=== PATIENT | male | born 1975 | race Caucasian/White ===

== ENCOUNTER 2019-01-04 01:23 | Inpatient (IN) | payer SELFPAY ==
[2019-01-04 02:40] LABS: #Eosinphils 0.1 thou/uL (0.0-0.7); #Lymphocytes 1.5 thou/uL (1.20-3.40); #Monocytes 0.9 thou/uL (0.11-0.59); %Basophils 0.2 % (0.0-1.0); %Eosinophils 0.7 % (0.0-10.0); %Lymphocytes 8.8 % (21.0-51.0); %Monocytes 5.3 % (0.0-10.0); Hemoglobin 15.4 g/dL (14.0-18.0); Mean Corpuscular HGB CONC 33.4 g/dL (32.0-36.0); Mean Corpuscular Hemoglobin 30.3 pg (27.0-31.0); Mean Corpuscular Volume 90.5 fL (78.0-98.0); Mean Platelet Volume 7.2 fL (7.4-10.4); Platelet Count 299 thou/uL (130-400); RBC Distribution Width 12.2 % (11.5-14.5); Red Blood Cell (RBC) Count 5.09 mill/uL (4.70-6.10); White Blood Cell (WBC) Count 16.5 thou/uL (4.8-10.8)
[2019-01-04] MEDS ORDERED: Mag-Al 1200 mg/1200 mg/30 ML UDCUP ONE (02:40)
[2019-01-04] MEDS ORDERED: Lidocaine Viscous Sol 2% 15 ml UD Cup ONE (02:40)
[2019-01-04 02:57] LABS: ALT (SGPT) 19 U/L (8-55); AST (SGOT) 19 U/L (5-34); Albumin 4.5 g/dL (3.5-5.0); Alkaline Phosphatase 75 U/L (40-150); Anion Gap 12 mmol/L (10-20); BUN (Urea Nitrogen) 9 mg/dL (8.9-20.6); Bilirubin, Total 0.6 mg/dL (0.2-1.2); Calc. Creatinine Clearance 0 mL/min (70-130); Calcium 9.6 mg/dL (7.8-10.44); Carbon Dioxide 27 mmol/L (22-29); Chloride 105 mmol/L (98-107); Estimated GFR-MDRD 61; Globulin 2.4 g/dL (2.4-3.5); Glucose 119 mg/dL (70-105); Lipase 18 U/L (8-78); Potassium 3.5 mmol/L (3.5-5.1); Protein, Total 6.9 g/dL (6.0-8.3); Sodium 140 mmol/L (136-145)
[2019-01-04 03:11] LABS: Bilirubin Negative (Negative); Blood, Urine Negative (Negative); Clarity CLEAR (Clear); Glucose, Urine (Dipstick) Negative (Negative); Leukocyte Negative (Negative); Nitrite Negative (Negative); Protein, Urine (Dipstick) Negative (Neg-Trace); Specific Gravity, Urine 1.022 (1.002-1.036); Urobilinogen 0.2 mg/dL (0.2-1.0); pH, Urine 5.5 (5.0-9.0)
[2019-01-04] MEDS ORDERED: cefOXitin 2 GM VIAL ONE (04:15)
[2019-01-04] MEDS ORDERED: Morphine 4 MG/ML VIAL ONE (04:15)
[2019-01-04] MEDS ORDERED: Ondansetron PF 4 MG/2 ML Vial ONE (04:15)
[2019-01-04 06:25] VITALS: TEMP 98.1; BMI 25.2
[2019-01-04 07:55] VITALS: BP 137/94
[2019-01-04] MEDS ORDERED: ISOVUE-370 76%-LOCM 1 ML ONE (08:00)
--- NOTE | 2019-01-04 08:46 | CT ---
PRELIMINARY REPORT/[facility]/EMERGENTY AFTER-HOURS PROCEDURE CT Abdomen and Pelvis With Contrast EXAM DATE/TIME: 01/04/2019 2:55 AM CLINICAL HISTORY: 43 years old, male; Pain; Abdominal pain; Prior surgery; Patient HX: Er 5; Patient reports having abd pain, nausea, vomiting, and constipation. Patient reports his vomit has had bile. Patient reports te nderness to ruq, luq, and epigastric. Surgical history of appendectomy TECHNIQUE: Axial computed tomography images of the abdomen and pelvis with intravenous contrast. Coronal reformatted images were created and reviewed. COMPARISON: No relevant prior studies available. FINDINGS: Lower thorax: No acute findings. ABDOMEN: Liver: Normal. Gallbladder and bile ducts: Minimal wall thickening of the gallbladder. No gallstones or biliary dilation. Pancreas: Normal. Spleen: Normal. Adrenals: Normal. Kidneys and ureters: 8 mm simple left midpole renal cyst. Stomach and bowel: Colonic diverticulosis. Appendix: Appendix is surgically absent. PELVIS: Bladder: Unremarkable as visualized. Reproductive: Unremarkable as visualized. ABDOMEN and PELVIS: Intraperitoneal space: Normal. No free air. No significant fluid collection. Bones/joints: Multilevel thoracolumbar spine degenerative changes. Soft tissues: Normal. Vasculature: Mild atherosclerotic disease of the abdominal aorta and iliac arteries. Lymph nodes: Normal. No enlarged lymph nodes. IMPRESSION: Minimal wall thickening of the gallbladder. No gallstones or biliary dilation. Early/mild cholecystit is possible. Recommend further evaluation. Thank you for allowing us to participate in the care of your patient. Dictated and Authenticated by: Theron Sanchez MD 01/04/2019 3:46 AM Central Time ([place] & [place]) FINAL REPORT CT ABDOMEN AND PELVIS: Date: 01/04/19 Multiple axial tomograms obtained through abdomen and pelvis with IV enhancement. FINDINGS: Liver, spleen, and pancreas are unremarkable. Gallbladder is mildly distended and there is evidence of mild gallbladder wall thickening, as noted o n the preliminary report. Bowel loops unremarkable. Otherwise no acute process. I am in agreement with the preliminary report issued by Jose. POS: IESHA
[2019-01-04 08:49] LABS: #Basophils 0.1 thou/uL (0.0-0.2); #Eosinphils 0.1 thou/uL (0.0-0.7); #Lymphocytes 2.1 thou/uL (1.20-3.40); #Monocytes 0.8 thou/uL (0.11-0.59); %Basophils 0.6 % (0.0-1.0); %Eosinophils 0.5 % (0.0-10.0); %Lymphocytes 19.2 % (21.0-51.0); %Monocytes 7.4 % (0.0-10.0); %Neutrophils 72.3 % (42.0-75.0); Hemoglobin 15.8 g/dL (14.0-18.0); Mean Corpuscular HGB CONC 33.8 g/dL (32.0-36.0); Mean Corpuscular Hemoglobin 30.6 pg (27.0-31.0); Mean Corpuscular Volume 90.6 fL (78.0-98.0); Mean Platelet Volume 7.3 fL (7.4-10.4); Platelet Count 290 thou/uL (130-400); RBC Distribution Width 12.3 % (11.5-14.5); Red Blood Cell (RBC) Count 5.17 mill/uL (4.70-6.10); White Blood Cell (WBC) Count 11.1 thou/uL (4.8-10.8)
--- NOTE | 2019-01-04 10:11 | ULT ---
GALLBLADDER ULTRASOUND: Date: 01/04/19 INDICATION: Pain. Cholelithiasis. Cholecystitis symptoms. FINDINGS: There is a thick gallbladder wall measuring between 3-4 mm. There is shadowing cholelithiasis. Common duct measures 2.0 mm, within normal limits. No focal hepatic lesion. No ascites. IMPRESSION: Cholelithiasis and gallbladder wall thickening, which could reflect acute or chronic cholecystitis, p ending clinical evaluation. POS: JOVITA
== END 2019-01-04 11:28 | disposition home or self-care (01) | DRG 446 ==
LOC: ERS 01:23 → SURG A 04:00
PROVIDERS: ADMIT Specialist; ATTEND Specialist
DX: K81.0 Acute cholecystitis (principal)
CPT/HCPCS: 36415; 74177; 76705; 80053; 81003; 83690; 85025; J0694; J2270; J2405; Q9966